=== PATIENT | female | born 1990 | race Caucasian/White ===

== ENCOUNTER 2024-08-26 20:18 | Emergency (ER) | payer OTHER ==
[~2024-08-26] VITALS: Ht 170.2 cm; Wt 65.8 kg
[2024-08-26] MEDS ORDERED: KETOROLAC TROMETHAMINE 15 MG/ML VIAL ONE (21:24)
[2024-08-26] MEDS ORDERED: LIDOCAINE 5% (PATCH) 1 EA PATCH TP ONE (21:25)
[2024-08-26] MEDS: LIDOCAINE 5% (PATCH) 1 EA PATCH TP SCH (21:32)
[2024-08-26] MEDS: KETOROLAC TROMETHAMINE 15 MG/ML VIAL IM ONE (21:32)
[2024-08-26] MEDS ORDERED: LIDO30AD10 TP (22:31)
[2024-08-26] MEDS ORDERED: CYCL10TA9 PO (22:31)
[2024-08-26] MEDS ORDERED: KETO10TA2 PO (22:31)
[2024-08-26 22:45] VITALS: BP 122/78; TEMP 98.1; O2SAT 99
== END 2024-08-26 22:46 | disposition home or self-care (01) ==
LOC: ER 20:41
DX: S00.83XA Contusion of other part of head, initial encounter (principal); E11.9 Type 2 diabetes mellitus without complications; E78.5 Hyperlipidemia, unspecified; I10 Essential (primary) hypertension; Z79.4 Long term (current) use of insulin; W22.8XXA Striking against or struck by other objects, initial encounter; Y93.89 Activity, other specified; Y92.511 Restaurant or cafe as the place of occurrence of the external cause; Y99.8 Other external cause status
CPT/HCPCS: 99285; 70450; 96372; J1885